=== PATIENT | male | born 1955 | race Caucasian/White ===

== ENCOUNTER 2024-03-25 23:40 | Observation (INO) | payer MEDICARE ==
--- NOTE | 2024-03-26 00:01 | ED ---
General Adult HPI - General Stated complaint: STEMI Time Seen by Provider: 03/25/24 23:51 - History of Present Illness Initial comments: Patient is a pleasant 68 y/o gentleman past medical history COPD presenting today for shortness of breath. Patient was at home this evening when he was sitting and watching TV and felt sudden onset shortness of breath. He felt he could not get a breath then and so called his who called 911. Upon EMS arrival patient's shortness of breath had resolved. He denied ever having chest pain, denies dizziness, lightheadedness, cough, hemoptysis, fevers, lower extremity swelling. He does state that his was sick approximately 1 week ago. No prior history of CAD, no family history of CAD or strokes. Patient received 324 milligrams aspirin prior to arrival. - Related Data Allergies Allergy/AdvReac Type Severity Reaction Status Date / Time ibuprofen Allergy Swelling Verified 03/25/24 23:57 Review of Systems ROS Statement: Those systems with pertinent positive or pertinent negative responses have been documented in the HPI. ROS Other: All systems not noted in ROS Statement are negative. General Exam - General Exam Comments Initial Comments: PE: CONSTITUTIONAL: No apparent distress, well appearing SKIN: Warm, dry, no jaundice, hives or petechiae EYES: Pupils are equally round, extraocular movements intact without nystagmus, clear conjunctiva, non-icteric sclera HENT: Normocephalic, atraumatic, dry mucus membranes, oropharynx clear without exudates NECK: , Full range of motion, normal appearance PULMONARY: Scant wheezes in the lung bases, decreased air movement throughout, no rhonchi or rales normal excursion, no accessory muscle use and no stridor CARDIOVASCULAR: Regular rate, rhythm, normal S1 and S2. No appreciated murmurs, rubs or gallops. Strong radial pulses with intact distal perfusion. No lower ex tremity edema GASTROINTESTINAL: Soft, non-tender, non-distended, no palpable masses, no rebound or guarding. No hepatosplenomegaly MUSCULOSKELETAL: Extremities have no gross deformity, no edema, redness, or swelling. No calf swelling NEUROLOGIC:_a/o x 3, GCS 15, normal mentation and speech. Moves all extremities x 4 without motor or sensory deficit PSYCHIATRIC:_normal mood and affect, thought process is clear and linear Course Vital Signs 03/25/24 03/25/2424 23:45 23:57 00:57 Temperature 98.5 F Pulse Rate 79 75 71 Respiratory 18 18 21 Rate Blood Pressure 131/85 119/82 124/77 O2 Sat by Pulse 96 95 94 L Oximetry 03/26/24 03/26/24 01:12 01:22 Temperature Pulse Rate 69 78 Respiratory Rate Blood Pressure O2 Sat by Pulse Oximetry EKG Findings - EKG Comments: EKG Findings:: Sinus rhythm, rate 77 bpm, normal intervals, normal axis, large T waves present in V3, V4, no ST elevation or obvious ST depression, no arrhyt hmia. Repeat EKG performed at 1:17 AM due to troponin elevation, rate 75 bpm, OK interval 144 ms, QRS duration 82 ms, QT/QTc 369/397 ms, normal axis, no STEMI, no significant changes from prior Medical Decision Making - Medical Decision Making Was pt. sent in by a medical professional or institution (, PA, POLE PEELER, urgent care, hospital, or shelter...) When possible be specific @ -[No] Did you speak to anyone other than the patient for history (EMS, parent, family, police, friend...)? What history was obtained from this source @ -Spoke with EMS personnel Did you review nursing and triage notes (agree or disagree)? Why? @ -[I reviewed and agree with nursing and triage notes] Were old charts reviewed (outside hosp., previous admission, EMS record, old EKG, old radiological studies, urgent care reports/EKG's, shelter records)? Report findings @ -No charts available for review Differential Diagnosis (chest pain, altered mental status, abdominal pain women, abdominal pain men, vaginal bleeding, weakness, fever, dyspnea, syncope, headache, dizziness, GI bleed, back pain, seizure, CVA, palpatations, mental health, musculoskeletal)? @ -D differential diagnosis remains broad however top considerations include ACS, arrhythmia, asthma, COPD, pneumonia, viral infection, anemia; this is not meant to be an all-inclusive list. EKG interpreted by me (3pts min.). @ -[As above] X-rays interpreted by me (1pt min.). @ -No acute process, no cardiomegaly consolidations or effusions CT interpreted by me (1pt min.). @ -[None done] U/S interpreted by me (1pt. min.). @ -[None done] What testing was considered but not performed or refused? (CT, X-rays, U/S, labs)? Why? @ -[None] What meds were considered but not given or refused? Why? @ -[None] Did you discuss the management of the patient with other professionals (professionals i.e. Dr., PA, POLE PEELER, lab, RT, psych nurse, social services director, tour coordinator, teacher, geospatial program management officer, manager case management)? Give summary @ -[No] Was smoking cessation discussed for >3mins.? @ -[No] Was critical care preformed (if so, how long)? @ -[No] Were there social determinants of health that impacted care today? How? (Homelessness, low income, unemployed, alcoholism, drug addiction, transportation, low edu. Level, literacy, decrease access to med. care, snf, rehab)? @ -[No] Was there de-escalation of care discussed even if they declined (Discuss DNR or withdrawal of care, Hospice)? @ -[No] What co-morbidities impacted this encounter? (DM, HTN, Smoking, COPD, CAD, Cancer, CVA, ARF, Chemo, Hep., AIDS, mental health diagnosis, sleep apnea, morbid obesity)? @ -COPD Was patient admitted / discharged? Hospital course, mention meds given and route, prescriptions, significant lab abnormalities, going to OR and other pertinent info. @ -[hospital course] patient is a 68-year gentleman presenting via EMS for sudden onset shortness of breath that has since resolved. Via EMS report there was concern for inferior wall MD on their rhythm strip however upon arrival EKG was obtained and showed no STEMI or ST depression. On arrival patient asymptomatic and denies ever having chest pain. He is well-appearing and vitals are stable. No hypoxia. Physical exam significant for scant wheezes in the lung bases with decreased air movement throughout. Nebulizer treatments ordered x 2, chest x-ray, Solu-Medrol, troponin, CMP CBC, PT, PTT, Cepheid ordered. Patient given 324 mg aspirin prior to arrival. Troponin 0.168. Patient currently denies any chest pain. Due to large T waves on EKG, significant troponin elevation, patient will be mated for NSTEMI and started on heparin drip. I updated patient to plan of care he is currently asymptomatic. He is agreeable with plan. All questions were answered. Patient discussed with Dr. Hernandez who kindly accepts patient for admission. Undiagnosed new problem with uncertain prognosis? @ -Yes Drug Therapy requiring intensive monitoring for toxicity (Heparin, Nitro, Insulin, Cardizem)? @ -Heparin Were any procedures done? @ -[No] Diagnosis/symptom? @ -NSTEMI Acute, or Chronic, or Acute on Chronic? @ -Acute Uncomplicated (without systemic symptoms) or Complicated (systemic symptoms)? @ -Complicated Side effects of treatment? @ -[No] Exacerbation, Progression, or Severe Exacerbation? @ -[No] Poses a threat to life or bodily function? How? (Chest pain, USA, MD, pneumonia, PE, COPD, DKA, ARF, appy, cholecystitis, CVA, Diverticulitis, Homicidal, Suicidal, threat to staff... and all critical care pts) @ -Yes - Lab Data Result diagrams: 03/25/24 23:51 03/25/24 23:51 Lab Results 03/25/24 03/25/24 03/25/24 Range/Units 23:51 23:51 23:51 WBC 6.2 (3.8-10.6) k/uL RBC 3.85 L (4.30-5.90) m/uL Hgb 11.4 L (13.0-17.5) gm/dL Hct 34.7 L (39.0-53.0) % MCV 90.1 (80.0-100.0) fL MCH 29.6 (25.0-35.0) pg MCHC 32.9 (31.0-37.0) g/dL RDW 12.9 (11.5-15.5) % Plt Count 319 (150-450) k/uL MPV 7.0 Neutrophils % 71 % Lymphocytes % 18 % Monocytes % 8 % Eosinophils % 1 % Basophils % 1 % Neutrophils # 4.4 (1.3-7.7) k/uL Lymphocytes # 1.1 (1.0-4.8) k/uL Monocytes # 0.5 (0-1.0) k/uL Eosinophils # 0.1 (0-0.7) k/uL Basophils # 0.0 (0-0.2) k/uL PT 10.6 (10.0-12.5) sec INR 1.0 (<1.2) APTT 24.8 (22.0-30.0) sec Sodium 130 L (137-145) mmol/L Potassium 4.1 (3.5-5.1) mmol/L Chloride 98 (98-107) mmol/L Carbon Dioxide 25 (22-30) mmol/L Anion Gap 7 mmol/L BUN 14 (9-20) mg/dL Creatinine 0.56 L (0.66-1.25) mg/dL Est GFR (CKD-EPI)AfAm >90 (>60 ml/min/1.73 sqM) Est GFR (CKD-EPI)NonAf >90 (>60 ml/min/1.73 sqM) Glucose 108 H (74-99) mg/dL Calcium 8.2 L (8.4-10.2) mg/dL Total Bilirubin 0.5 (0.2-1.3) mg/dL AST 27 (17-59) U/L ALT 20 (4-49) U/L Alkaline Phosphatase 67 (38-126) U/L Troponin I (0.000-0.034) ng/mL NT-Pro-B Natriuret Pep 91 pg/mL Total Protein 6.1 L (6.3-8.2) g/dL Albumin 3.7 (3.5-5.0) g/dL 03/25/24 Range/Units 23:51 WBC (3.8-10.6) k/uL RBC (4.30-5.90) m/uL Hgb (13.0-17.5) gm/dL Hct (39.0-53.0) % MCV (80.0-100.0) fL MCH (25.0-35.0) pg MCHC (31.0-37.0) g/dL RDW (11.5-15.5) % Plt Count (150-450) k/uL MPV Neutrophils % % Lymphocytes % % Monocytes % % Eosinophils % % Basophils % % Neutrophils # (1.3-7.7) k/uL Lymphocytes # (1.0-4.8) k/uL Monocytes # (0-1.0) k/uL Eosinophils # (0-0.7) k/uL Basophils # (0-0.2) k/uL PT (10.0-12.5) sec INR (<1.2) APTT (22.0-30.0) sec Sodium (137-145) mmol/L Potassium (3.5-5.1) mmol/L Chloride (98-107) mmol/L Carbon Dioxide (22-30) mmol/L Anion Gap mmol/L BUN (9-20) mg/dL Creatinine (0.66-1.25) mg/dL Est GFR (CKD-EPI)AfAm (>60 ml/min/1.73 sqM) Est GFR (CKD-EPI)NonAf (>60 ml/min/1.73 sqM) Glucose (74-99) mg/dL Calcium (8.4-10.2) mg/dL Total Bilirubin (0.2-1.3) mg/dL AST (17-59) U/L ALT (4-49) U/L Alkaline Phosphatase (38-126) U/L Troponin I 0.168 H* (0.000-0.034) ng/mL NT-Pro-B Natriuret Pep pg/mL Total Protein (6.3-8.2) g/dL Albumin (3.5-5.0) g/dL Disposition Clinical Impression: NSTEMI (non-ST elevated myocardial infarction) Disposition: ADMITTED IP TO THIS [facility] Condition: Good Referrals: None,Stated [REFERRING] - 1-2 days
[2024-03-26] MEDS: methylPREDNISolone SOD SUCCI 125 MG/2 ML VIAL IV STA (00:06)
[2024-03-26] MEDS: SODIUM CHLORIDE 0.9% 500 ML 500 ML IV STA (00:07)
[2024-03-26 00:28] LABS: Basophils % (A) 1 %; Eosinophils # (A) 0.1 k/uL (0-0.7); Eosinophils % (A) 1 %; HCT 34.7 % (39.0-53.0); HGB 11.4 gm/dL (13.0-17.5); Lymphocytes # (A) 1.1 k/uL (1.0-4.8); Lymphocytes % (A) 18 %; MCH 29.6 pg (25.0-35.0); MCHC 32.9 g/dL (31.0-37.0); MCV 90.1 fL (80.0-100.0); Monocytes # (A) 0.5 k/uL (0-1.0); Monocytes % (A) 8 %; Neutrophils # (A) 4.4 k/uL (1.3-7.7); Neutrophils % (A) 71 %; Platelet Count 319 k/uL (150-450); RBC 3.85 m/uL (4.30-5.90); RDW 12.9 % (11.5-15.5); WBC 6.2 k/uL (3.8-10.6)
[2024-03-26 00:42] LABS: ALT 20 U/L (4-49); AST 27 U/L (17-59); African American GFR (CKD) >90 (>60 ml/min/1.73 sqM); Albumin 3.7 g/dL (3.5-5.0); Alkaline Phosphatase 67 U/L (38-126); Anion Gap 7 mmol/L; Blood Urea Nitrogen 14 mg/dL (9-20); Calcium 8.2 mg/dL (8.4-10.2); Carbon Dioxide 25 mmol/L (22-30); Chloride 98 mmol/L (98-107); Glucose 108 mg/dL (74-99); Non-African American GFR(CKD) >90 (>60 ml/min/1.73 sqM); Potassium 4.1 mmol/L (3.5-5.1); Sodium 130 mmol/L (137-145); Total Bilirubin 0.5 mg/dL (0.2-1.3); Total Protein 6.1 g/dL (6.3-8.2)
[2024-03-26 00:45] LABS: Partial Thromboplastin Time 24.8 sec (22.0-30.0); Prothrombin Time 10.6 sec (10.0-12.5)
[2024-03-26 00:50] LABS: NT-Pro-B-Type Natriuretic Pept 91 pg/mL
[2024-03-26] MEDS: IPRATROPIUM-ALBUTEROL 3 ML NEB INHALATION STA (01:11)
[2024-03-26] MEDS ORDERED: ACETAMINOPHEN TAB 325 MG TAB PO PRN (01:14)
[2024-03-26] MEDS ORDERED: NITROGLYCERIN SL TABS 0.4 MG TAB SUBLINGUAL PRN (01:14)
[2024-03-26] MEDS ORDERED: MORPHINE SULFATE 4 MG/ML SYRINGE IV PRN (01:14)
--- NOTE | 2024-03-26 01:14 | XR ---
EXAMINATION TYPE: XR chest 2V DATE OF EXAM: 03/26/2024 COMPARISON: NONE HISTORY: Difficulty in breathing. TECHNIQUE: Frontal and lateral views of the chest are obtained. FINDINGS: Background Chronic emphysematous change is present. There is right greater than left biapi margarita pleural/parenchymal scarring. There is no focal air space opacity, pleural effusion, or pneumotho rax seen. The cardiac silhouette size is within normal limits. The osseous structures are intact. IMPRESSION: Chronic emphysematous changes without acute pulmonary process.
[2024-03-26] MEDS: HEPARIN SODIUM 1,000 UN/ML (10ML VL) IV ONE (01:36)
[2024-03-26] MEDS: HEPARIN SOD,PORK IN 0.45% NACL 25,000 UNIT in 0.45% NACL 1 250ML.BAG IV SCH (01:37)
[2024-03-26] MEDS ORDERED: IPRATROPIUM-ALBUTEROL 3 ML NEB INHALATION PRN (03:44)
--- NOTE | 2024-03-26 03:57 | P.HPIM ---
History of Present Illness H&P Date: 03/26/24 Chief Complaint: Shortness of breath Patient is a 68-year-old male with COPD (not on home O2) presents to the ED with shortness of breath. Patient was accompanied with his . He states he felt a gradually worsening of shortness of breath throughout the day yesterday. At around 10:30 PM he states that he had difficulty breathing to the point where he found it difficult to speak. At that point the thought it was necessary to bring him in to the emergency department. He states the dyspnea is made worse by laying supine and feels better when he is sitting up. He denies any increased cough or sputum production. He states shortness of breath resolved as he arrived to the ED. Patient also endorses shortness of breath with exertion that has been going on for about a week or so which is new to him, denies any leg edema denies any cardiac history Patient denies any chest pain, nausea, vomiting, fever, chills, headache, vision changes, generalized weakness. Review of systems: Pertinent positives and negatives as discussed in HPI, a complete review of systems was performed and all other systems are negative. Social history: Tobacco: Former [id number] smoker, quit 25 years ago Alcohol: Denies alcohol use, quit over 30 years ago Recreational drugs: Uses vape pen for marijuana Travel: Denies recent travel Occupation: Lives at home with Physical examination: Vitals: T afebrile, AK 78, RR 21, BP 124/77, O2 sat 94% on room air General: non toxic, no distress, appears at stated age Derm: no unusual rashes/lesions, warm Head: atraumatic, normocephalic, symmetric Eyes: EOMI, anicteric sclera, pupils equal round reactive to light ENT: Nose and ears atraumatic Cardiovascular: S1S2 reg, no murmur, positive dorsalis pedis pulse bilateral, no edema Lungs: Diminished breath sounds no wheezing, no rhonchi, no rales, no accessory muscle use Abdominal: soft, nontender to palpation, no guarding Ext: muscle strength 5 out of 5 in all 4 extremities grossly, no gross muscle atrophy Neuro: CN II-XI grossly intact, no gross focal neuro deficits Psych: Alert and oriented to person place and time Assessment/Plan: Patient is a 68-year-old male with COPD (not on home O2) presents with shortness of breath. The patient is admitted with an anticipated greater than than 2 midnight stay for evaluation of NSTEMI. #. Acute N-STEMI Ischemic versus nonischemic etiology Denies any chest pain EKG on independent interpretation showed normal sinus rhythm CXR on independent interpretation showed COPD changes, no acute pulmonary process Troponin 0.168, continue to trend troponins Lipid panel ordered Follow-up CBC, BMP, coag panel Currently on heparin drip On aspirin 81 mg p.o. daily Nitroglycerin 0.4 mg sublingual Q5M as needed Pain management: Morphine sulfate 4 mg IV Q4HR as needed, acetaminophen 650 mg p.o. q4hr as needed NPO diet Monitor on telemetry Cardiology consulted Patient also tested positive for COVID which could result in slightly elevated troponins #. COPD exacerbation secondary to acute COVID infection Denies increase in cough and sputum production Not on home oxygen O2 sat 94% on room air, if patient starts requiring oxygen consider Decadron 6 mg daily CXR independently interpreted showed chronic COPD changes, no acute pulmonary process Was given 125 mg IV Solu-Medrol once by ED DuIraisb QID as needed Start prednisone 40 mg p.o. daily #. COVID-19 Tested positive for COVID-19 in the ED Monitor for oxygen requirement Management as above #. Hyponatremia, mild Sodium 130 Patient asymptomatic Holding fluids, continue to monitor BMP #. Anxiety Patient states he takes Prozac 40 mg daily at home #. History of prostate cancer Currently in remission DVT prophylaxis: Heparin drip for suspected underlying NSTEMI F: N/A E: Replete electrolytes as needed N: NPO A: Cardiac rehab CODE STATUS: Full code Past Medical History Past Medical History: COPD Additional Past Medical History / Comment(s): prostate CA History of Any Multi-Drug Resistant Organisms: None Reported Past Surgical History: Bowel Resection Additional Past Surgical History / Comment(s): cervical SX Past Psychological History: Anxiety Smoking Status: Former smoker, Vaper Past Alcohol Use History: None Reported Past Drug Use History: None Reported Medications and Allergies Allergies Allergy/AdvReac Type Severity Reaction Status Date / Time ibuprofen Allergy Swelling Verified 03/25/24 23:57 Physical Exam Vitals: Vital Signs Temp Pulse Resp BP Pulse Ox 03/26/24 01:22 78 03/26/24 01:12 69 03/26/24 00:57 71 21 124/77 94 L 03/25/24 23:57 75 18 119/82 95 03/25/24 23:45 98.5 F 79 18 131/85 96 Intake and Output 03/25/24 03/25/24 03/26/24 14:59 22:59 06:59 Other: Weight 58.967 kg Results CBC & Chem 7: 03/25/24 23:51 03/25/24 23:51 Labs: Abnormal Lab Results - Last 24 Hours (Table) 03/25/24 03/25/24 03/25/24 Range/Units 23:51 23:51 23:51 RBC 3.85 L (4.30-5.90) m/uL Hgb 11.4 L (13.0-17.5) gm/dL Hct 34.7 L (39.0-53.0) % Sodium 130 L (137-145) mmol/L Creatinine 0.56 L (0.66-1.25) mg/dL Glucose 108 H (74-99) mg/dL Calcium 8.2 L (8.4-10.2) mg/dL Troponin I 0.168 H* (0.000-0.034) ng/mL Total Protein 6.1 L (6.3-8.2) g/dL SARS-CoV-2 (PCR) (Not Detectd) 03/25/24 Range/Units 23:54 RBC (4.30-5.90) m/uL Hgb (13.0-17.5) gm/dL Hct (39.0-53.0) % Sodium (137-145) mmol/L Creatinine (0.66-1.25) mg/dL Glucose (74-99) mg/dL Calcium (8.4-10.2) mg/dL Troponin I (0.000-0.034) ng/mL Total Protein (6.3-8.2) g/dL SARS-CoV-2 (PCR) Detected A (Not Detectd) Assessment and Plan Assessment: This patient was seen and assessed by Dr. andrez Hernandez who is utilizing Dr. Meza account due to technical issues I saw and examined the patient independently and I discussed the case with the resident and I agree with the documented H&P and assessment and plan which was amended as needed
[2024-03-26 07:36] LABS: African American GFR (CKD) >90 (>60 ml/min/1.73 sqM); Anion Gap 6 mmol/L; Blood Urea Nitrogen 12 mg/dL (9-20); Calcium 8.7 mg/dL (8.4-10.2); Carbon Dioxide 26 mmol/L (22-30); Chloride 100 mmol/L (98-107); Glucose 159 mg/dL (74-99); Non-African American GFR(CKD) >90 (>60 ml/min/1.73 sqM); Potassium 4.3 mmol/L (3.5-5.1); Sodium 132 mmol/L (137-145)
[2024-03-26 07:37] LABS: Basophils % (A) 0 %; Eosinophils % (A) 0 %; Lymphocytes # (A) 0.4 k/uL (1.0-4.8); Lymphocytes % (A) 9 %; MCH 29.7 pg (25.0-35.0); MCHC 32.4 g/dL (31.0-37.0); MCV 91.5 fL (80.0-100.0); Mean Platelet Volume 7.1; Monocytes # (A) 0.1 k/uL (0-1.0); Monocytes % (A) 2 %; Neutrophils % (A) 88 %; Platelet Count 365 k/uL (150-450); RBC 4.37 m/uL (4.30-5.90); WBC 4.6 k/uL (3.8-10.6)
[2024-03-26] MEDS ORDERED: IPRATROPIUM-ALBUTEROL 3 ML NEB INHALATION SCH (08:00)
[2024-03-26] MEDS: predniSONE 20 MG TAB PO SCH (08:07)
[2024-03-26] MEDS: ASPIRIN 81 MG PO SCH (08:07)
[2024-03-26] MEDS: ALBUTEROL HFA INHALER INHALATION PRN (08:40)
[2024-03-26] MEDS: TAMSULOSIN 0.4 MG CAP.ER.24H PO SCH (11:01)
[2024-03-26] MEDS: buPROPion XL 300 MG TAB.ER.24H PO SCH (11:01)
[2024-03-26] MEDS: FLUoxetine HCL 20 MG CAP PO SCH (11:01)
--- NOTE | 2024-03-26 11:24 | P.CRDCN ---
History of Present Illness History of present illness: HISTORY OF PRESENT ILLNESS: This is a 68-year-old male with a past medical history significant for COPD. Patient does not follow with a hrbp. We have been asked to see the patient in consultation for elevated troponins. Patient examined at the bedside in the emergency room. Patient presented to the hospital due to generalized malaise and shortness of breath. Patient was found to be positive for COVID. Patient currently denies chest pain or pressure. He denies shortness of breath. Patient was found to have elevated troponins and was started on IV heparin DIAGNOSTICS: - EKG reveals sinus mechanism with no signs of acute ischemia - Chest xray chronic emphysematous changes without acute pulmonary process - Laboratory data: WBC 4.6. Hemoglobin 13.0. Platelet count 365. Sodium 132. Potassium 4.3. BUN 12. Creatinine 0.56. Troponin 0.168. 0.901. 0.694. - Current home cardiac medications include none REVIEW OF SYSTEMS: At the time of my exam: CONSTITUTIONAL: Denies fever or chills. HEENT: Denies blurred vision, vision changes, or eye pain. Denies hemoptysis CARDIOVASCULAR: Denies chest pain. Denies orthopnea. Denies PND. Denies palpitations RESPIRATORY: Denies shortness of breath. GASTROINTESTINAL: Denies abdominal pain. Denies nausea or vomiting. HEMATOLOGIC: Denies bleeding disorders. GENITOURINARY: Denies any blood in urine. SKIN: Denies pruitis. Denies rash. PHYSICAL EXAM: VITAL SIGNS: Reviewed. GENERAL: Well-developed in no acute distress. HEENT: Head is normocephalic. Pupils are equal, round. Sclerae anicteric. Mucous membranes of the mouth are moist. Neck supple. No JVD or thyromegaly LUNGS: Respirations even and unlabored. Lungs essentially clear to auscultation bilaterally. HEART: Regular rate and rhythm. S1 and S2 heard. ABDOMEN: Soft. Nondistended. Nontender. EXTREMITIES: Normal range of motion. No clubbing or cyanosis. Peripheral pulses intact. No lower extremity edema NEUROLOGIC: Awake and alert. Oriented x 3. ASSESSMENT: Generalized malaise Acute COVID-19 Shortness of breath secondary to above Elevated troponins; type II GA secondary to acute COVID-19 History of COPD PLAN: An acute coronary event has been ruled out Obtain 2D echo to assess cardiac structure and function Discontinue IV heparin No plans for cardiac catheterization at this time Supportive measures for COVID infection Further recommendations pending patient course Nurse practitioner note has been reviewed by physician. Signing provider agrees with the documented findings, assessment, and plan of care documented by BATH STEWARD/STEWARDESS as a scribe. Past Medical History Past Medical History: COPD Additional Past Medical History / Comment(s): prostate CA History of Any Multi-Drug Resistant Organisms: None Reported Past Surgical History: Bowel Resection Additional Past Surgical History / Comment(s): cervical SX Past Psychological History: Anxiety Smoking Status: Former smoker, Vaper Past Alcohol Use History: None Reported Past Drug Use History: None Reported Medications and Allergies Home Medications Medication Instructions Recorded Confirmed Type Albuterol Sulfate [Albuterol 1 - 2 puff INHALATION RT-Q4H PRN 03/26/24 03/26/24 History Sulfate Hfa] FLUoxetine HCL [PROzac] 40 mg PO DAILY 03/26/24 03/26/24 History Fluticasone/Umeclidin/Vilanter 1 puff INHALATION RT-DAILY 03/26/24 03/26/24 History [Trelegy Ellipta 200-62.5-25] Tamsulosin HCl [Flomax] 0.4 mg PO DAILY 03/26/24 03/26/24 History buPROPion XL [Wellbutrin XL] 300 mg PO DAILY 03/26/24 03/26/24 History Allergies Allergy/AdvReac Type Severity Reaction Status Date / Time ibuprofen Allergy Swelling Verified 03/26/24 08:44 (LIPS) Physical Exam Vitals: Vital Signs Temp Pulse Resp BP Pulse Ox 03/26/24 11:00 75 16 119/60 98 03/26/24 09:33 20 03/26/24 09:32 68 16 130/68 96 03/26/24 08:00 82 20 118/75 96 03/26/24 06:23 73 18 116/74 95 03/26/24 01:22 78 03/26/24 01:12 69 03/26/24 00:57 71 21 124/77 94 L 03/25/24 23:57 75 18 119/82 95 03/25/24 23:45 98.5 F 79 18 131/85 96 Intake and Output 03/25/24 03/26/24 03/26/24 22:59 06:59 14:59 Other: Weight 58.967 kg Results 03/26/24 06:31 03/26/24 06:31 Cardiac Enzymes 03/25/24 03/25/24 03/26/24 Range/Units 23:51 23:51 02:51 AST 27 (17-59) U/L Troponin I 0.168 H* 0.901 H* (0.000-0.034) ng/mL 03/26/24 Range/Units 06:31 AST (17-59) U/L Troponin I 0.694 H* (0.000-0.034) ng/mL Coagulation 03/25/24 03/26/24 Range/Units 23:51 07:43 PT 10.6 (10.0-12.5) sec APTT 24.8 33.3 H (22.0-30.0) sec CBC 03/25/24 03/26/24 Range/Units 23:51 06:31 WBC 6.2 4.6 (3.8-10.6) k/uL RBC 3.85 L 4.37 (4.30-5.90) m/uL Hgb 11.4 L 13.0 (13.0-17.5) gm/dL Hct 34.7 L 40.0 (39.0-53.0) % Plt Count 319 365 (150-450) k/uL Comprehensive Metabolic Panel 03/25/24 03/26/24 Range/Units 23:51 06:31 Sodium 130 L 132 L (137-145) mmol/L Potassium 4.1 4.3 (3.5-5.1) mmol/L Chloride 98 100 (98-107) mmol/L Carbon Dioxide 25 26 (22-30) mmol/L BUN 14 12 (9-20) mg/dL Creatinine 0.56 L 0.56 L (0.66-1.25) mg/dL Glucose 108 H 159 H (74-99) mg/dL Calcium 8.2 L 8.7 (8.4-10.2) mg/dL AST 27 (17-59) U/L ALT 20 (4-49) U/L Alkaline Phosphatase 67 (38-126) U/L Total Protein 6.1 L (6.3-8.2) g/dL Albumin 3.7 (3.5-5.0) g/dL Current Medications Generic Name Dose Route Start Last Admin Trade Name Freq PRN Reason Stop Dose Admin Acetaminophen 650 mg 03/26/24 01:14 Acetaminophen Tab 325 Mg Tab PO Q4HR PRN Pain Albuterol Sulfate 2 puff 03/26/24 08:27 03/26/24 08:40 Albuterol Hfa Inhaler INHALATION 2 puff RT-QID PRN Administration Shortness Of Breath Aspirin 81 mg 03/26/24 09:00 03/26/24 08:07 Aspirin 81 Mg PO 81 mg DAILY MAURY Administration Budesonide/Formoterol Fumarate 2 puff 03/26/24 20:00 Symbicort 160-4.5 Mcg Inhaler INHALATION RT-BID MAURY Bupropion HCl 300 mg 03/26/24 10:45 03/26/24 11:01 Bupropion Xl 300 Mg Tab.Er.24h PO 300 mg DAILY MAURY Administration Fluoxetine HCl 40 mg 03/26/24 10:45 03/26/24 11:01 Fluoxetine Hcl 20 Mg Cap PO 40 mg DAILY MAURY Administration Heparin Sodium (Porcine) 5,000 unit 03/26/24 16:00 Heparin Sodium,Porcine 5,000 Unit/Ml 1 Ml Vial SQ Q8HR MAURY Ipratropium [place] 0.5 mg 03/26/24 12:00 Ipratropium 0.5 Mg/2.5 Ml Nebu INHALATION RT-QID MAURY Morphine Sulfate 4 mg 03/26/24 01:14 Morphine Sulfate 4 Mg/Ml Syringe IV Q4HR PRN Chest Pain Nitroglycerin 0.4 mg 03/26/24 01:14 Nitroglycerin Sl Tabs 0.4 Mg Tab SUBLINGUAL Q5M PRN Chest Pain Prednisone 40 mg 03/26/24 09:00 03/26/24 08:07 Prednisone 20 Mg Tab PO 40 mg DAILY MAURY Administration Tamsulosin HCl 0.4 mg 03/26/24 10:45 03/26/24 11:01 Tamsulosin 0.4 Mg Cap.Er.24h PO 0.4 mg DAILY MAURY Administration Intake and Output 03/25/24 03/26/24 03/26/24 22:59 06:59 14:59 Other: Weight 58.967 kg 03/26/24 06:31 03/26/24 06:31
[2024-03-26] MEDS ORDERED: IPRATROPIUM 0.5 MG/2.5 ML NEBU INHALATION SCH (12:00)
[2024-03-26] MEDS: TIOTROPIUM 2.5 MCG INHALER INHALATION SCH (15:16)
[2024-03-26] MEDS: HEPARIN SODIUM,PORCINE 5,000 UNIT/ML 1 ML VIAL SQ SCH (16:09)
[2024-03-26] MEDS: SYMBICORT 160-4.5 MCG INHALER INHALATION SCH (19:52)
[2024-03-27 06:46] LABS: Mean Platelet Volume 7.4; Platelet Count 316 k/uL (150-450)
[2024-03-27] MEDS ORDERED: NON FORMULARY DRUG (Fluticasone/Umeclidin/Vilanter [Trelegy Ellipta 200-62.5-25] 1 EACH Bl INHALATION SCH (08:00)
[2024-03-27] MEDS ORDERED: ASPIRIN 325 MG TAB PO SCH (09:00)
[2024-03-27 10:52] LABS: Chol/HDL Ratio 3.15 Ratio; LDL Cholesterol,Calculated 101.4 mg/dL (0.0-131.0); VLDL Calculation 16.68 mg/dL (5.00-40.00)
--- NOTE | 2024-03-27 10:52 | CA ---
Transthoracic Echo Report Name: Laith Marquez Age: 68 Gender: M : 1955 Exam Date: 03/26/2024 16:08 Exam Location: [facility] Ht (in): 73 Wt (lb): 130 Ordering Physician: Tiffani Vincent Attending/Referring Phys: [id number], Carlton Purification Operator Maria Esther Kim RDCS Procedure CPT: Indications: LV function Cardiac Hx: Technical Quality: Fair Contrast 1: Total Dose (mL): Contrast 2: Total Dose (mL): MEASUREMENTS (Male / Female) Normal Values 2D ECHO LV Diastolic Diameter PLAX 3.5 cm 4.2 - 5.9 / 3.9 - 5.3 cm LV Systolic Diameter PLAX 2.1 cm IVS Diastolic Thickness 1.0 cm 0.6 - 1.0 / 0.6 - 0.9 cm LVPW Diastolic Thickness 0.9 cm 0.6 - 1.0 / 0.6 - 0.9 cm LV Relative Wall Thickness 0.5 RV Internal Dim ED PLAX 3.6 cm LA Volume 44.9 cm??? 18 - 58 / 22 - 52 cm??? LA Volume Index 26.1 cm???/m??? 16 - 28 cm???/m??? M-MODE Aortic Root Diameter MM 4.1 cm LA Systolic Diameter MM 3.2 cm LA Ao Ratio MM 0.8 AV Cusp Separation MM 2.5 cm DOPPLER AV Peak Velocity 111.0 cm/s AV Peak Gradient 4.9 mmHg AV Mean Velocity 85.1 cm/s AV Mean Gradient 3.1 mmHg AV Velocity Time Integral 22.0 cm LVOT Peak Velocity 99.7 cm/s LVOT Peak Gradient 4.0 mmHg LVOT Velocity Time Integral 22.1 cm MV Area PHT 3.3 cm??? Mitral E Point Velocity 68.8 cm/s Mitral A Point Velocity 72.4 cm/s Mitral E to A Ratio 1.0 MV Deceleration Time 226.9 ms MV E' Velocity 6.3 cm/s Mitral E to MV E' Ratio 11.0 TR Peak Velocity 250.2 cm/s TR Peak Gradient 25.0 mmHg Right Ventricular Systolic Press 29.9 mmHg FINDINGS Left Ventricle Left ventricular cavity size normal. Left ventricular wall thickness normal. No obvious regional wall motion abnormalities. Left ventricular ejection fraction is estimated at 50% Right Ventricle Mild right ventricular dilatation. Right ventricular systolic pressure within normal limits. Right Atrium Normal right atrial size. Left Atrium Normal left atrial size. Mitral Valve Structurally normal mitral valve. Mitral valve thickened. Mild mitral annular calcification. No mitral stenosis, regurgitation or prolapse. Aortic Valve Trileaflet aortic valve. No aortic valve stenosis or regurgitation. Tricuspid Valve Structurally normal tricuspid valve. Mild tricuspid regurgitation. Pulmonic Valve Structurally normal pulmonic valve. Pericardium No pericardial effusion. Aorta Normal size aortic root and proximal ascending aorta. CONCLUSIONS Technically difficult study grossly LV systolic function is fairly well- preserved. There is mitral annular calcification noted. No significant abnormality on the Doppler exam. No pericardial effusion Previewed by: Dr. Marley Al MD (Electronically Signed) Final Date: 27 March 2024 10:51
--- NOTE | 2024-03-27 11:39 | P.PN ---
Subjective HISTORY OF PRESENT ILLNESS: This is a 68-year-old male with a past medical history significant for COPD. 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 We have been asked to see the patient in consultation for elevated troponins. Patient examined at the bedside in the emergency room. Patient presented to the hospital due to generalized malaise and shortness of breath. Patient was found to be positive for COVID. Patient currently denies chest pain or pressure. He denies shortness of breath. Patient was found to have elevated troponins and was started on IV heparin DIAGNOSTICS: - EKG reveals sinus mechanism with no signs of acute ischemia - Chest xray chronic emphysematous changes without acute pulmonary process - Laboratory data: WBC 4.6. Hemoglobin 13.0. Platelet count 365. Sodium 132. Potassium 4.3. BUN 12. Creatinine 0.56. Troponin 0.168. 0.901. 0.694. - Current home cardiac medications include none 03/27/2024 Patient examined this morning the emergency room. Patient currently denies chest pain or pressure. He denies shortness of breath. Vital signs are stable. Echocardiogram completed revealing ejection fraction 50%. PHYSICAL EXAM: VITAL SIGNS: Reviewed. GENERAL: Well-developed in no acute distress. HEENT: Head is normocephalic. Pupils are equal, round. Sclerae anicteric. Mucous membranes of the mouth are moist. Neck supple. No JVD or thyromegaly LUNGS: Respirations even and unlabored. Lungs essentially clear to auscultation bilaterally. HEART: Regular rate and rhythm. S1 and S2 heard. ABDOMEN: Soft. Nondistended. Nontender. EXTREMITIES: Normal range of motion. No clubbing or cyanosis. Peripheral pulses intact. No lower extremity edema NEUROLOGIC: Awake and alert. Oriented x 3. ASSESSMENT: Generalized malaise Acute COVID-19 Shortness of breath secondary to above Elevated troponins; type II IL secondary to acute COVID-19 History of COPD PLAN: 2D echo obtained and reviewed Patient is stable for discharge home today from a cardiac standpoint We will sign off. Please reconsult if needed. Nurse practitioner note has been reviewed by physician. Signing provider agrees with the documented findings, assessment, and plan of care documented by ICING MIXER as a scribe. Objective - Vital Signs Vital signs: Vital Signs Temp 97.8 F 03/27/24 06:00 Pulse 78 03/27/24 10:00 Resp 20 03/27/24 10:00 BP 110/78 03/27/24 10:00 Pulse Ox 96 03/27/24 10:00 FiO2 Intake & Output 03/26/24 03/27/24 03/27/24 18:59 06:59 18:59 Weight 58.967 kg - Labs CBC & Chem 7: 03/27/24 06:24 03/26/24 06:31 Labs: Abnormal Lab Results - Last 24 Hours (Table) 03/26/24 Range/Units 06:31 C-Reactive Protein 1.1 H (<1.0) mg/dL
[2024-03-27 12:30] VITALS: BP 120/68; PULSE 68; RESP 16; TEMP 98.5
--- NOTE | 2024-03-27 15:05 | P.DS ---
Providers Date of admission: 03/26/24 01:17 Expected date of discharge: 03/27/24 Attending physician: Tomasz Hernandez MD Primary care physician: Christel Goodrich Hospital Course: Discharge Diagnosis: 1. Type II NSTEMI secondary to COVID-19 infection 2. COPD exacerbation secondary to acute COVID-19 infection 3. COVID-19 4. Hyponatremia 5. Anxiety 6. History of prostate cancer, in remission Hospital Course: 68-year-old male with history of COPD presented to the ER on 03/26/2024 with chief complaint of shortness of breath which he states has been gradually worsening the day before. Patient endorses difficulty breathing to the point where he found it difficult to speak which prompted him to come to the ER. Chest x-ray showed COPD changes with no acute pulmonary process. EKG showed normal sinus rhythm. Labs was significant for positive troponin of 0.168. Patient was admitted for COPD exacerbation and elevated troponin concerning for ACS. Cardiology was consulted. Repeat troponin levels were stable downtrending. Echocardiogram done 03/26/2024 showed LVEF estimated at 50% with no significant structural abnormalities. Patient continued to improve on his admission. Chest pain and shortness of breath has resolved patient was stable to be discharged. Patient advised to follow-up with her PCP within 1 to 2 days and cardiology within 3 weeks. Patient is provided with instruction/handout on COVID-19. Patient to complete 5-day course of oral steroid with prednisone. Patient already had a 1 dose of prednisone 40 mg orally before discharge and to continue with prednisone 40 mg p.o. daily for next 4 days. Prescription provided. Patient is advised to continue with her regular home medications as directed. Patient is also advised to self quarantine while he is symptomatic with COVID- 19. Vital signs reviewed. Gen: in no apparent distress, resting comfortably in bed Eyes: PERRL, no scleral injection or icterus HENT: normocephalic, atraumatic, good hearing acuity, moist mucous membranes Neck: full range of motion Resp: CTAB, no rales, rhonchi, or wheezes CVS: normal S1 and S2, no murmurs, rubs or gallops, no edema GI: soft, NTTP, ND, no hepatosplenomegaly : no suprapubic tenderness, no CVAT, bowling catheter is not present MSK: no clubbing, no cyanosis, no noted contractures of extremities Skin: no noted rashes, petechiae; temperature of skin is appropriate Neuro: moving all extremities without signs of weakness, CN II-XII intact Psych: cooperative, euthymic mood, insight and judgment intact A total of 33 minutes of time were spent preparing this complex discharge summary. Patient was discharged on 03/27/24 at 1123. I have seen and evaluated the patient today. Discussed with the resident and agree with the residents finding and plan as documented in the resident's note. Changes highlighted in blue font. Patient Condition at Discharge: Stable Plan - Discharge Summary New Discharge Prescriptions: New predniSONE [Deltasone] 40 mg PO DAILY #8 tab Continue buPROPion XL [Wellbutrin XL] 300 mg PO DAILY Albuterol Sulfate [Albuterol Sulfate Hfa] 1 - 2 puff INHALATION RT-Q4H PRN PRN Reason: Shortness Of Breath Tamsulosin HCl [Flomax] 0.4 mg PO DAILY Fluticasone/Umeclidin/Vilanter [Trelegy Ellipta 200-62.5-25] 1 puff INHALATION RT-DAILY FLUoxetine HCL [PROzac] 40 mg PO DAILY Discharge Medication List Albuterol Sulfate [Albuterol Sulfate Hfa] 1 - 2 puff INHALATION RT-Q4H PRN 03/26/24 [History] FLUoxetine HCL [PROzac] 40 mg PO DAILY 03/26/24 [History] Fluticasone/Umeclidin/Vilanter [Trelegy Ellipta 200-62.5-25] 1 puff INHALATION RT-DAILY 03/26/24 [History] Tamsulosin HCl [Flomax] 0.4 mg PO DAILY 03/26/24 [History] buPROPion XL [Wellbutrin XL] 300 mg PO DAILY 03/26/24 [History] predniSONE [Deltasone] 40 mg PO DAILY #8 tab 03/27/24 [Rx] Follow up Appointment(s)/Referral(s): Marc Esposito MD [STAFF PHYSICIAN] - 3 Weeks (Follow-up with Dr. Esposito in 3 weeks) None,Stated [REFERRING] - 1-2 days Patient Instructions/Handouts: COVID-19 (Coronavirus Disease 2019) (DC) Activity/Diet/Wound Care/Special Instructions: Please see PCP and cardiology. If you do not have PCP, please call the following Clinic to establish PCP. [facility] Address: [facility], [place] [address] Discharge Disposition: HOME SELF-CARE
== END 2024-03-27 12:29 | disposition home or self-care (01) ==
LOC: EC 23:40 → 3SCARD 03-26 01:17 → INTOOBSV 03-26 01:17 → 3SCARD 03-26 14:41 → UNDODISIN 03-27 12:29
PROVIDERS: ADMIT Internal Medicine; ATTEND Internal Medicine
DX: U07.1 COVID-19 (principal); I21.A1 Myocardial infarction type 2; J44.1 Chronic obstructive pulmonary disease with (acute) exacerbation; E87.1 Hypo-osmolality and hyponatremia; Z88.6 Allergy status to analgesic agent; F41.9 Anxiety disorder, unspecified; Z85.46 Personal history of malignant neoplasm of prostate; Z87.891 Personal history of nicotine dependence; Z79.899 Other long term (current) drug therapy
CPT/HCPCS: 36415; 71046; 80048; 80053; 80061; 83880; 84484; 85025; 85049; 85610; 85652; 85730; 86140; 87636; 93005; 93306; 94640; 96365; 96366; 96372; 96375; 99285

== ENCOUNTER → 2025-01-17 | Outpatient (CLI) | payer MEDICARE ==
--- NOTE | 2025-01-18 17:36 | PE ---
EXAMINATION TYPE: PET CT fusion skull to thigh DATE OF EXAM: 01/17/2025 CLINICAL INDICATION:Male, 69 years old with history of R91.1 LUNG NODULE; history of prostate cancer/ melanoma . TECHNIQUE: Following the intravenous administration of 12.8 mCi of F-18 FDG, whole body images are performed from the skull base to the midthigh. Images are reviewed on the computer in the coronal, a xial, and sagittal planes. Reconstructed rotating images are created on independent workstation and reviewed on the computer. A non-contrast CT is performed in conjunction with the PET scan. Glucose level 120 mg/dL CT DLP: 465 mGycm, Automated exposure control for dose reduction was used. COMPARISON: CT None, PET/CT None, MRI: None FINDINGS: Mediastinal SUV mean is 1.9. Hepatic parenchyma SUV mean is 2.4. SKULL BASE AND NECK: No suspicious radiotracer activity. CHEST, MEDIASTINUM, AND HILAR REGION: Right lower lobe lung base irregular 2.0 cm nodular consolidation (series 4, image 154). This demonst rates FDG activity with a maximum SUV of 8.0. There are a couple of left lower lobe sub-5 mm pulmonary nodules without suspicious FDG activity. ABDOMEN AND PELVIS: No suspicious radiotracer activity. MUSCULOSKELETAL STRUCTURES: No suspicious radiotracer activity. OTHER CT: Right aphakia. Dilated main pulmonary artery measuring up to 3.4 cm which can be seen with pulmonary arterial hypertension. Trace anterior pericardial effusion. Large simple appearing right re nal upper pole 2.3 cm cyst. Cholelithiasis. Therefore hypodense lesions within the liver with large c ysts in the periphery of the right hepatic lobe measuring up to 2.8 cm. Attenuation is not consistent with simple cysts. Mild atherosclerotic calcification of the aorta and its branches. Postsurgical ch anges with anastomosis involving the descending colon. Brachytherapy seeds in the prostate gland. Pos tsurgical changes of the cervical spine. Advanced centrilobular mild biapical pleural parenchymal sca rring with right greater than left. Emphysematous changes. IMPRESSION: 1. Posterior right lower lobe nodular consolidation with FDG activity. This is concerning for primar y lung malignancy versus metastasis. Less likely infectious/inflammatory process. Consider tissue fariba pling for definitive diagnosis. No other suspicious FDG activity to suggest metastasis. Recommend fol low-up CT chest in 3-6 months for remaining sub-5 mm non-FDG avid pulmonary nodules. 2. Few hypodense hepatic lesions not consistent with simple cysts. No focal increased FDG activity w ithin these lesions identified. May represent hemangiomas. Correlation with any outside prior imaging is recommended otherwise consider further evaluation with MR abdomen with IV contrast (liver mass pr otocol) for further characterization. [facility], , 01/18/2025 5:34 PM
== END | disposition home or self-care (01) ==
LOC: RADPETMAIN 07:37
PROVIDERS: ATTEND Student in an Organized Health Care Education/Training Program
DX: R91.8 Other nonspecific abnormal finding of lung field (principal); K76.89 Other specified diseases of liver
CPT/HCPCS: 78815; A9552